=== PATIENT | female | born 1965 | race Caucasian/White ===

== ENCOUNTER → 2018-05-05 | Outpatient (CLI) | payer BC ==
--- NOTE | 2018-05-05 15:31 | US ---
EXAM DESCRIPTION: Soft Tissue,Head/Neck: ULTRASOUND. CLINICAL HISTORY: LOCALIZED SWELLING, MASS AND LUMP, NECK palpable. COMPARISON: None Available. TECHNIQUE: Transcutaneous scanning: Akers-scale and Doppler modes. FINDINGS: Hypoechoic circumscribed mass with no central echogenicity but minimally vascular measuring 4.1 x 1.6 x 1.4 cm. Possible calcification. Parallel orientation and posterior enhancement features. Consistent with a reactive lymph node. Second hypoechoic mass with similar imaging features measuring 2.9 x 2.5 cm. Minimal central echogenicity and vascularity. Consistent with a reactive lymph node. No distinct cyst. No large calcifications or parenchymal edema. Overlying skin changes. No abnormal vascularity. Soft tissue on the left side of the neck is unremarkable. IMPRESSION: At least 2 reactive lymph nodes on the lateral right neck measuring 4.1 cm and 2.9 cm greatest diameter. Both nodes appear reactive with minimal central vascularity. Nonspecific finding. Consider CT scan of the neck soft tissues with IV contrast. Electronically signed by: Reggie Burton MD 05/05/2018 3:30 PM CDT
== END ==
LOC: US 14:26
PROVIDERS: ATTEND Nurse Practitioner Family
DX: R22.1 Localized swelling, mass and lump, neck (principal)

== ENCOUNTER → 2018-05-06 | Outpatient (CLI) | payer BC ==
--- NOTE | 2018-05-06 16:06 | CT ---
EXAM DESCRIPTION: Soft Tissue Neck w/Contrast CLINICAL HISTORY: LOCALIZED ENLARGED LYMPH NODES COMPARISON: None. TECHNIQUE: Postcontrast multi detector CT imaging of the neck was performed. Multiplanar reconstructions were generated. This exam was performed according to our departmental dose-optimization program which includes automated exposure control, adjustment of the mA and/or kV according to patient size and/or use of iterative reconstruction technique. FINDINGS: Orbits, paranasal sinuses, and skull base: Unremarkable. Nasopharynx: Unremarkable. Suprahyoid neck: Dystrophic calcifications noted within the left tonsil is commonly associated with chronic and/or remote infection. Otherwise, normal oropharynx, oral cavity, parapharyngeal space, and retropharyngeal space. Infrahyoid neck: Normal larynx, hypopharynx, and supraglottis. Thyroid: Unremarkable. Thoracic inlet: Normal lung apices. Lymph nodes: Extensive lymphadenopathy is demonstrated throughout the right cervical chain. The largest lymph node is a right level 2B node that measures up to 2.7 cm respectively. These nodes are circumscribed without internal calcification or significant cystic spaces. No significant contralateral left neck lymphadenopathy is demonstrated. Lymphadenopathy within the right cervical chain extends to the level of the thyroid. Vascular structures: Unremarkable. Other findings: None. IMPRESSION: Extensive lymphadenopathy in the right cervical chain. Differential considerations include lymphoma versus metastatic disease of uncertain origin. Ultrasound-guided core needle biopsy may prove diagnostic. Electronically signed by: Jah Su MD 05/06/2018 4:04 PM CDT
== END ==
LOC: RAD 11:04
PROVIDERS: ATTEND Nurse Practitioner Family
DX: R59.0 Localized enlarged lymph nodes (principal)

== ENCOUNTER → 2018-05-19 | Outpatient (CLI) | payer BC, OTHER ==
--- NOTE | 2018-05-19 21:17 | US ---
EXAM DESCRIPTION: Biopsy/Needle Guidance: Ultrasound. CLINICAL HISTORY: LOCALIZED ENLARGED LYMPH NODES. Right neck, paracervical space. COMPARISON: CT soft tissue neck 05/06/2018. Ultrasound soft tissue neck 05/05/2018. TECHNIQUE: Procedure explained to the patient with risks and benefits. Patient gave verbal and written consent. Left decubitus on ultrasound table right lateral neck exposed. Transcutaneous scanning: Two-dimensional mode, prior to the procedure to localize the enlarged right paracervical lymph nodes Sterile preparation and draping. Local skin anesthetic, prior to incision. Incision with #11 blade, made overlying the more posterior node. 16-gauge [employer] Monopty 15 cm core biopsy system was utilized with ultrasound guidance. 4 samples were obtained of the enlarged lymph node.. 2 samples and dry container and 2 samples in sterile water. No immediate complications. Incision was sutured. Patient discharged home after 30 min observation in good condition, accompanied by family member. FINDINGS: Again noted over 2 enlarged hypoechoic lymph nodes in the right paracervical chain wider than tall orientation with posterior acoustic enhancement. The lymph nodes measure 1. 81.5 cm short axis with in the plane of the biopsy needle. Multiple images demonstrate the needle within the more posterior lymph node. IMPRESSION: Successful, ultrasound-guided, needle core biopsy of enlarged right paracervical lymph node. No immediate complications. Pathology results pending at remote laboratory. DARNELL Celaya, was notified directly by phone, of the findings at the end of the procedure. Electronically signed by: Reggie Burton MD 05/19/2018 9:16 PM CDT
== END ==
LOC: US 08:24
PROVIDERS: ATTEND Nurse Practitioner Family
DX: R59.0 Localized enlarged lymph nodes (principal)

== ENCOUNTER → 2018-05-25 | Outpatient (CLI) | payer BC ==
--- NOTE | 2018-05-25 13:29 | CT ---
EXAM DESCRIPTION: Chest w/Contrast CLINICAL HISTORY: MALIGNANT NEOPLASM OF LYMPHNODE COMPARISON: CT neck May 06, 2018 TECHNIQUE: Postcontrast CT images of the chest are obtained using standard imaging protocol. This exam was performed according to our departmental dose-optimization program, which includes automated exposure control, adjustment of the mA and/or kV according to patient size and/or use of iterative reconstruction technique . FINDINGS: The heart and great vessels are within normal limits. No pathologically enlarged mediastinal, hilar, or axillary lymphadenopathy seen. No pleural or pericardial effusion is seen. Lungs are normally aerated without acute appearing infiltrate or consolidation. No worrisome pulmonary nodules are identified. The osseous structures show no aggressive bony lesions. Findings in the abdomen are described on CT of the abdomen and pelvis from today. IMPRESSION: No acute findings on CT of the chest. No pathologic lymphadenopathy is seen in the chest. Electronically signed by: Pietro Hunt MD 05/25/2018 1:27 PM CDT
--- NOTE | 2018-05-25 13:33 | CT ---
EXAM DESCRIPTION: Abdomen/Pelvis w/Contrast CLINICAL HISTORY: MALIGNANT NEOPLASM OF LYMPHNODE COMPARISON: CT chest same date TECHNIQUE: Postcontrast CT images of the abdomen and pelvis are obtained using standard imaging protocol. Positive oral contrast was utilized. This exam was performed according to our departmental dose-optimization program, which includes automated exposure control, adjustment of the mA and/or kV according to patient size and/or use of iterative reconstruction technique . FINDINGS: There are several less than 5 mm hypodensities in the left lobe of the liver that are too small to adequately characterize, but most likely represent cysts. Small calcification in the inferior right lobe of the liver is seen. Spleen, pancreas, and adrenal glands are unremarkable. Cholecystectomy changes are seen without biliary tract obstruction. Abdominal vasculature is unremarkable. Kidneys show no nephrolithiasis. No solid mass. No ureteral calcification or obstruction is seen. Urinary bladder is contracted and not evaluated. 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 The appendix is not identified and could be surgically absent. Stomach is contracted and not well evaluated, but grossly unremarkable. No small bowel obstruction or bowel wall thickening is seen. Mildly increased volume of formed fecal material in the descending to sigmoid colon is seen. No colon wall thickening or significant diverticular disease. No pathologically enlarged abdominal or retroperitoneal lymphadenopathy seen. The osseous structures show no aggressive bony lesions. Degenerative changes of the spine are seen. IMPRESSION: No acute findings on CT of the abdomen and pelvis. No pathologically enlarged abdominal or retroperitoneal lymphadenopathy is seen. Electronically signed by: Pietro Hunt MD 05/25/2018 1:31 PM CDT
== END ==
LOC: CT 08:11
PROVIDERS: ATTEND Nurse Practitioner Family
DX: C77.0 Secondary and unspecified malignant neoplasm of lymph nodes of head, face and neck (principal)

== ENCOUNTER → 2019-02-10 | Outpatient (CLI) | payer BC ==
--- NOTE | 2019-02-10 14:39 | CT ---
EXAM DESCRIPTION: Chest w/Contrast CLINICAL HISTORY: 53 years Female, MALIGNANT NEOPLASM OF THE HEAD, FACE AND NECK COMPARISON: CT of the thorax dated May 25, 2018. TECHNIQUE: Post contrast multidetector CT imaging of the chest was performed. Multiplanar reconstructions were generated. This exam was performed according to our departmental dose-optimization program which includes automated exposure control, adjustment of the mA and/or kV according to patient size and/or use of iterative reconstruction technique. FINDINGS: Lower neck soft tissues are unremarkable. No supraclavicular lymphadenopathy. No axillary lymphadenopathy. The trachea and proximal bronchi are patent. No endobronchial lesions. Usual dependent changes right lower lobe. No acute airspace disease. No concerning pulmonary nodules. No pleural thickening or pleural calcifications. No pleural effusions. The heart size is normal. No mediastinal hilar lymphadenopathy. The great vessels appear normal in caliber. No aggressive lytic or blastic osseous lesions are present. The visualized structures of the upper abdomen are unremarkable. IMPRESSION: No acute thoracic findings. Negative for metastatic disease to the chest. Electronically signed by: Jah Su MD 02/10/2019 2:36 PM CDT
== END ==
LOC: LAB.O 12:02
PROVIDERS: ATTEND Internal Medicine Hematology & Oncology
DX: C76.0 Malignant neoplasm of head, face and neck (principal)

== ENCOUNTER → 2019-08-03 | Outpatient (CLI) | payer BC ==
--- NOTE | 2019-08-04 08:13 | CT ---
EXAM DESCRIPTION: CT chest without and with contrast CLINICAL HISTORY: Malignant neoplasm of the head and neck. Squamous cell carcinoma of the right tonsil COMPARISON: 02/10/2019 TECHNIQUE: Spiral CT with multiplanar reformatted images. Pre and post intravenous iodinated nonionic contrast This exam was performed according to our departmental dose-optimization program, which includes automated exposure control, adjustment of the mA and/or kV according to patient size and/or use of iterative reconstruction technique. FINDINGS: No pulmonary nodule or mass lesion to suggest metastatic disease. Minimal interstitial fibrosis in the lung apices likely postradiation change No thoracic mass or adenopathy to suggest metastatic disease or primary neoplasm. Normal contrast enhancement of the heart, aorta and pulmonary arteries No mass or adenopathy in the visualized upper abdomen No lytic or blastic bony lesion IMPRESSION: No metastatic disease to the chest No acute cardiopulmonary process Electronically signed by: Greg Dela Cruz MD 08/04/2019 8:12 AM [employer]
--- NOTE | 2019-08-08 13:33 | CT ---
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 Previous radiation and chemotherapy COMPARISON: 12/02/2018 TECHNIQUE: Spiral CT with multiplanar reformatted images. Pre and postcontrast CT with intravenous iodinated nonionic contrast This exam was performed according to our departmental dose-optimization program, which includes automated exposure control, adjustment of the mA and/or kV according to patient size and/or use of iterative reconstruction technique. FINDINGS: Postsurgical change right neck dissection. Similar appearance of the loss of fat/ soft tissue planes around the carotid vasculature. Similar appearance of the attenuated residual jugular vein at the skull base on the right. Normal contrast enhancement of the partially visualized dural venous sinuses No mass lesion or adenopathy in the neck to suggest residual/recurrent tumor. No mucosal mass lesion of the nasopharynx, oropharynx or larynx No mass lesion or inflammatory process in the visualized upper chest included in the [id number] No lytic or blastic bony lesion or other acute bony abnormality IMPRESSION: Stable CT neck. No residual/recurrent tumor status post right tonsillar carcinoma resection/right lateral neck dissection Electronically signed by: Greg Dela Cruz MD 08/08/2019 1:31 PM ARCHITECT
== END ==
LOC: CT 15:30
PROVIDERS: ATTEND Internal Medicine Hematology & Oncology
DX: C76.0 Malignant neoplasm of head, face and neck (principal); Z98.890 Other specified postprocedural states

== ENCOUNTER → 2020-04-15 | Outpatient (CLI) | payer BC, OTHER ==
--- NOTE | 2020-04-15 13:51 | CT ---
EXAM DESCRIPTION: Soft Tissue Neck w/wo Contrast CLINICAL HISTORY: 54 years, Female, MALIGNANT NEOPLASM OF HEAD, FACE AND NECK. 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 Six weeks of radiation chemotherapy. COMPARISON: CT soft tissue neck 08/03/2019, 12/02/2018. TECHNIQUE: Multidetector helical CT with axial 3 mm scans and coronal and sagittal reconstructed images was obtained from the skull base to the aortic arch before and after administration of IV contrast. This exam was performed according to our departmental dose optimization program which includes use of automated exposure control, adjustment of the mA and/or kV according to patient size and/or use of iterative reconstruction technique. FINDINGS: Postsurgical changes of right radical lymph node dissection including removal of the right submandibular gland, sternocleidomastoid muscle and jugular vein. Mild scarring and posttreatment changes along the surgical bed. There is no enhancing nodular soft tissue mass or lymphadenopathy to suggest recurrent disease. Right supraclavicular lymph node measures five mm, unchanged. No morphologically suspicious right or left cervical lymph node. The nasopharynx, oral pharynx and oral cavity including the floor of the mouth and tongue are unremarkable. The hypopharynx including the epiglottis, vallecula and pyriform sinuses are unremarkable. The larynx, vocal cords and subglottic airways are unremarkable/patent. The parotid and thyroid glands are unremarkable. No suspicious sclerotic or lytic osseous lesion. Limited evaluation of the upper chest reveals mild to moderate biapical pleural thickening/scarring. IMPRESSION: 1. Stable changes of right radical neck dissection. No evidence of recurrent disease or cervical lymphadenopathy on CT. Electronically signed by: Remy Gupta DO 04/15/2020 1:50 PM CDT
== END ==
LOC: CT 08:08
PROVIDERS: ATTEND Internal Medicine Hematology & Oncology
DX: Z01.812 Encounter for preprocedural laboratory examination (principal); C76.0 Malignant neoplasm of head, face and neck